=== PATIENT | male | born 1960 | race Caucasian/White ===

== ENCOUNTER 2016-09-20 16:37 | Emergency (ER) | payer BC ==
[2016-09-20] MEDS ORDERED: NS 0.9% 1000 ML* 2,000 ML IV ONE (17:36)
[2016-09-20 18:38] LABS: Hematocrit 37 % (42-52); Hemoglobin 12.2 g/dl (14.0-18.0); Mean Corpuscular HGB Conc 33 g/dl (31-36); Mean Corpuscular Hemoglobin 34 pg (27-31); Mean Corpuscular Volume 104 fL (80-94); Mean Platelet Volume 9 um3 (7.4-10.4); Red Blood Count 3.59 10^6/ul (4.0-5.4); Red Cell Distribution Width 15 % (10.5-15)
[2016-09-20 18:53] LABS: Albumin 3.1 g/dL (3.2-5.2); BUN/Creatinine Ratio 10.3 (8-20); Calcium 8.1 mg/dL (8.6-10.3); EGFR Non-African American 119.8 (>60); Globulin 3.4 g/dL (2-4); Potassium 3.5 mmol/L (3.5-5.0); Total Bilirubin 0.5 mg/dL (0.2-1.0); Total Protein 6.5 g/dL (6.4-8.9)
[2016-09-20 19:29] LABS: TSH (Thyroid Stimulating Horm) 0.81 mcIU/mL (0.34-5.60)
[2016-09-20 21:05] LABS: BUN/Creatinine Ratio 11.5 (8-20); Calcium 7.8 mg/dL (8.6-10.3); EGFR African American 174.6 (>60); EGFR Non-African American 135.8 (>60); Potassium 3.5 mmol/L (3.5-5.0)
[2016-09-20 21:39] LABS: Hematocrit 36 % (42-52); Hemoglobin 11.8 g/dl (14.0-18.0); Mean Corpuscular HGB Conc 33 g/dl (31-36); Mean Corpuscular Hemoglobin 34 pg (27-31); Mean Corpuscular Volume 103 fL (80-94); Mean Platelet Volume 9 um3 (7.4-10.4); Red Blood Count 3.49 10^6/ul (4.0-5.4); Red Cell Distribution Width 15 % (10.5-15); White Blood Count 5.3 10^3/ul (3.5-10.8)
[2016-09-20 21:40] LABS: Venous Bicarbonate HCO3 17.3 mmol/L (24-28)
--- NOTE | 2016-09-21 00:55 | ED ---
Kory Rodríguez Salem, scribed for Gagandeep Anedrson MD on 09/20/16 at 1733 . Syncope/Near Syncope - HPI Summary HPI Summary: Patient is a 56 y/o M who presents to the ED s/p syncope since earlier today. His friend reports that they were playing golf (8 holes) in the sun and the pt consumed EtOH afterwards on his own. His friend then found him incoherent. Pt denies any pain or recollections of any falls. Pt had a recent gastric bypass in February 2016. - History Of Current Complaint Chief Complaint: EDSyncope Time Seen by Provider: 09/20/16 17:09 Hx Obtained From: Patient, Family/Drinking Water Technician Onset/Duration: Gradual Onset, Lasting Hours, Still Present Timing: Constant Context: Unwitnessed Activity At Onset: Unknown Associated Head Trauma: No Aggravating Factor(s): Other - EtOH. Alleviating Factor(s): Nothing Associated Signs And Symptoms: Negative - Allergies/Home Medications Allergies/Adverse Reactions: Allergies Allergy/AdvReac Type Severity Reaction Status Date / Time No Known Allergies Allergy Verified 09/20/16 17:05 PMH/Surg Hx/FS Hx/Imm Hx Previously Healthy: Yes - Surgical History Surgery Procedure, Year, and Place: None. Infectious Disease History: No Infectious Disease History: Denies: Traveled Outside the [place] in Last 30 Days - Family History Known Family History: Negative: Cardiac Disease, Diabetes - Social History Alcohol Use: Occasionally Review of Systems Positive: Other - No pain or falls. . Negative: Fever, Chills Negative: Erythema Negative: Sore Throat Negative: Chest Pain Negative: Shortness Of Breath, Cough Negative: Abdominal Pain, Vomiting, Nausea Negative: dysuria, hematuria Negative: Myalgia, Edema Negative: Rash Neurological: Other - No dizziness. Positive: Syncope All Other Systems Reviewed And Are Negative: Yes Physical Exam - Summary Physical Exam Summary: Constitutional: Well-developed, Well-nourished, Alert. (-) Distressed. No signs of trauma. Skin: Warm, Dry HENT: Eyes: Conjunctiva normal Neck: Musculoskeletal ROM normal neck. (-) JVD, (-) Stridor, (-) Tracheal deviation Cardio: Rhythm regular, rate normal, Heart sounds normal; Intact distal pulses; The pedal pulses are 2+ and symmetric. Radial pulses are 2+ and symmetric. (-) Murmur Pulmonary/Chest wall: Effort normal. (-) Respiratory distress, (-) Wheezes, (-) Rales Abd: Soft. (-) Tenderness, (-) Distension, (-) Guarding, (-) Rebound. Ringworm on abd. Musculoskeletal: (-) Edema Lymph: (-) Cervical adenopathy Neuro: Alert, Oriented x3, Strength normal, Cranial nerves II-XII are grossly intact. (-) Dysmetria, (-) Nystagmus, (-) Ataxia by finger to nose testing, (-) Sensory deficit. Slurred speech. No pronator drift. Psych: Mood and affect Normal Triage Information Reviewed: Yes Vital Signs On Initial Exam: Initial Vitals Temp Pulse Resp BP Pulse Ox 99 F 82 16 109/60 95 09/20/16 16:45 09/20/16 16:45 09/20/16 16:45 09/20/16 16:45 09/20/16 16:45 Vital Signs Reviewed: Yes Diagnostics - Vital Signs Vital Signs Temp Pulse Resp BP Pulse Ox 09/20/16 16:45 99 F 82 16 109/60 95 - Laboratory Result Diagrams: 09/20/16 21:30 09/20/16 20:40 Lab Statement: Any lab studies that have been ordered have been reviewed, and results considered in the medical decision making process. - EKG 1846 EKG Interpretation: NSR @ 72 bpm. No Stemi. Re-Evaluation - Re-Evaluation First Eval Re-Evaluation Time: 22:18 Comment: Pt ambulated. He feels better. He would like to go home and friend would like to take him home. Course/Dx Course Of Treatment: 56 y/o M presents s/p syncope. He denies any falls or pain. Pt received fluids in ED course. EKG shows NSR @ 72 bpm. No Stemi. There was no evidence of acidosis. Pt will be DC'd. - Diagnoses Provider Diagnoses: Alcohol intoxication, Heat exhaustion, Dehydration Discharge - Discharge Plan Condition: Stable Disposition: HOME Patient Education Materials: Alcohol Intoxication (ED), Heat Exhaustion (ED), Dehydration (ED) [place] [facility] [place] [place] [place]] Additional Instructions: Please [place] [facility] [place] RETURN TO THE EMERGENCY DEPARTMENT FOR CHANGING OR WORSENING SYMPTOMS. The documentation as recorded by the Kory thomas Salem accurately reflects the service I personally performed and the decisions made by me, Gagandeep Anderson MD.
== END 2016-09-20 22:40 | disposition home or self-care (01) ==
LOC: ED 16:37
DX: F10.129 Alcohol abuse with intoxication, unspecified (principal); T67.5XXA Heat exhaustion, unspecified, initial encounter; E86.0 Dehydration; R55 Syncope and collapse; X30.XXXA Exposure to excessive natural heat, initial encounter; Y93.9 Activity, unspecified; Y92.9 Unspecified place or not applicable; Y99.9 Unspecified external cause status
CPT/HCPCS: 36415; 80048; 80053; 80320; 82803; 83605; 83735; 84443; 84484; 85025; 85027; 93005; 96360; 99283; G0480